=== PATIENT | female | born 1970 | race Caucasian/White ===

== ENCOUNTER 2020-06-30 15:34 | Emergency (ER) | payer MEDICAID ==
[2020-06-30] MEDS ORDERED: SODIUM CHLORIDE 0.9% (FLUSH) 10 ML SYG IV PRN (15:38)
--- NOTE | 2020-06-30 16:03 | ED.PDOC ---
History of Present Illness - General Chief Complaint: Chest Pain/[place]I Stated Complaint: chest pain Time Seen by Provider: 06/30/20 15:37 Source: patient, RN notes reviewed, Vital Signs reviewed Exam Limitations: other - pt with a trach and only able to mouth words. - History of Present Illness Initial Comments: Patient is a morbidly obese 49-year-old white female who presents from the long-term facility on a trach vent with complaints of chest pain. Patient has a history of coronary artery disease and has had stents and surgery for same. Patient states that her chest pain started approximately 2 hours ago. It is 10/10. It is sharp and stabbing in nature. The pain does not radiate. Patient denies any nausea, vomiting or diaphoresis. The pain is constant. There was no relief after 4 nitroglycerin from EMS. Timing/Duration: 1-3 hours Severity/Quality: severe, sharp, stabbing Location: central Chest Pain Radiation: no radiation Activities at Onset: none Prior Chest Pain/Cardiac Workup: cardiac cath, heart attack Improving Factors: nothing Worsening Factors: nothing Nitro Today/Relief: 0.4 mg x 4, provided by EMS Aspirin Treatment Today: 81 mg x 4, provided by EMS Associated Symptoms: shortness of breath Allergies/Adverse Reactions: Allergies Amoxicillin [From Augmentin] Allergy (Verified 06/30/20 15:47) Clavulanic Acid [From Augmentin] Allergy (Verified 06/30/20 15:47) Clindamycin Allergy (Verified 06/30/20 15:47) Desvenlafaxine [From Pristiq] Allergy (Verified 06/30/20 15:47) Ondansetron [From Zofran] Allergy (Verified 06/30/20 15:47) Penicillins Allergy (Verified 06/30/20 15:47) Tramadol Allergy (Verified 06/30/20 15:47) Home Medications: Ambulatory Orders ALPRAZolam [Xanax] 0.5 mg PEG Q8H 06/30/20 Acetaminophen [Acetaminophen Extra Stren] 1,000 mg PEG Q8H PRN 06/30/20 Acetaminophen [Tylenol] 325 mg PEG Q6H 06/30/20 Alirocumab [Praluent] 150 mg SC [id number] 06/30/20 Aspirin [Aspirin Adult Low Dose] 81 mg PEG DAILY 06/30/20 Atorvastatin Calcium [Lipitor] 80 mg PEG DAILY 06/30/20 Budesonide (Inhalation) [Budesonide] 0.5 mg IN Q12H 06/30/20 Buspirone HCl 15 mg PEG TID 06/30/20 Carbamazepine 100 mg PEG BID 06/30/20 Carvedilol 12.5 mg PEG BID 06/30/20 Cholestyramine Powder [Questran Powder] 4 gm PEG TID 06/30/20 Clonidine HCl 0.1 mg PEG BID 06/30/20 Dicyclomine HCl [Bentyl] 20 mg PEG Q6H PRN 06/30/20 Diphenoxylate/Atropine [Lomotil Tab] 2.5 mg PEG Q6H PRN 06/30/20 Ergocalciferol [Vitamin D] 50,000 unit PEG WE 06/30/20 Famotidine 20 mg PEG DAILY 06/30/20 Furosemide 40 mg PEG BID 06/30/20 Gabapentin 600 mg PEG TID 06/30/20 Hydroxyzine HCl 50 mg PEG Q8H PRN 06/30/20 Ibuprofen 600 mg PEG Q12H PRN 06/30/20 Insulin Glargine [Basaglar Kwikpen] 35 unit SC BID 06/30/20 Insulin Lispro [HumaLOG] 100 unit SC Q6H 06/30/20 Ipratropium-Albuterol [Ipratropium [place]/Albut] 1 janice IN Q6H PRN 06/30/20 Isosorbide Mononitrate (Ismo) [Ismo] 20 mg PEG Q8H 06/30/20 Levofloxacin [Levaquin] 750 mg PO DAILY #9 tab 06/30/20 Levothyroxine Sodium 88 mcg PEG DAILY 06/30/20 Levothyroxine Sodium [Synthroid] 200 mcg PEG DAILY 06/30/20 Magnesium [Magnesium Elemental] 30 mg PEG DAILY 06/30/20 Methocarbamol 750 mg PEG BID 06/30/20 Metoclopramide HCl [Metoclopramide Hydrochlor] 10 mg PEG Q6H PRN 06/30/20 Metolazone 5 mg PEG GAGAN-OTH-DAY 06/30/20 Nitroglycerin 0.4 mg Tab [Nitrostat] 1 ea SL PRN 06/30/20 Pantoprazole Tablet [Protonix] 40 mg PEG ACBK 06/30/20 Prasugrel [Effient] 10 mg PEG DAILY 06/30/20 Sertraline HCl [Zoloft] 100 mg PEG BID 06/30/20 Spironolactone 50 mg PEG DAILY 06/30/20 Trazodone HCl [Trazodone Hydrochloride] 200 mg PEG BEDTIME 06/30/20 Verapamil HCl 80 mg PEG Q8H 06/30/20 Review of Systems - Review of Systems Constitutional: States: no symptoms reported, see HPI. Denies: chills, fever, malaise, weakness EENTM: States: no symptoms reported. Denies: eye pain, blurred vision, throat pain Respiratory: States: see HPI, short of breath Cardiology: States: see HPI, chest pain. Denies: palpitations, syncope Gastrointestinal/Abdominal: States: no symptoms reported. Denies: abdominal pain, diarrhea, nausea, vomiting Genitourinary: States: no symptoms reported. Denies: dysuria, frequency Musculoskeletal: States: no symptoms reported. Denies: back pain, joint pain Skin: States: no symptoms reported. Denies: change in color, rash Neurological: States: no symptoms reported. Denies: headache, tingling, tremors, weakness Endocrine: States: no symptoms reported. Denies: increased hunger, increased thirst, increased urine Hematologic/Lymphatic: States: no symptoms reported. Denies: blood clots, easy bleeding, easy bruising All other Systems: No Change from Baseline Past Medical History (General) - Patient Medical History Hx of COPD: Yes Hx Cardiac Disorders: Yes Hx Congestive Heart Failure: Yes Hx Diabetes: Yes Surgical History: appendectomy, cholecystectomy, Hysterectomy - Vaccination History Hx Influenza Vaccination: - UNKNOWN Hx Pneumococcal Vaccination: - UNKNOWN - Social History Hx Tobacco Use: Yes - Activities of Daily Living Long-Term/Assisted Living (if applicable):: [facility] Family Medical History - Family History Mother Family History: Unknown Living Status: Still Living Physical Exam - Physical Exam General Appearance: Alert, Anxious, Obese, Unkempt, Well Developed, Well Hydrated, Well Nourished Eyes, Ears, Nose, Throat Exam: PERRL/EOMI, normal ENT inspection, pharynx normal Neck: non-tender, full range of motion, supple, other - trach in place Respiratory: chest non-tender, no accessory muscle use, rhonchi - diffusely throughout Cardiovascular/Chest: normal peripheral pulses, regular rate, rhythm, no edema, no gallop, no JVD, no murmur Peripheral Pulses: radial,right: 2+, radial,left: 2+ Gastrointestinal/Abdominal: normal bowel sounds, non tender, soft, distended - m orbidly obese Extremity: normal range of motion, non-tender, normal inspection 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 06/30/20 20:49 Initial difficulty in getting lab work. Nursing unable to attain IVs or blood work. Lab was unable to obtain blood work. I placed a left internal jugular central line and obtain blood work and this allowed further work-up evaluation of the patient. CTA shows she has pneumonia. No PE. Plan on discharge back to the [facility] on Levaquin. I discussed the plan of care with the patient she voices understanding and agreement. Bear Nelson M.D. #[id number] - Results/Orders Results/Orders: EKG performed 30 June 2020 at 1535 hrs.: Normal sinus rhythm 63 bpm, nonspecific ST changes inferiorly including inverted T waves in 2, 3 and aVF concerning for inferior ischemic changes, age indeterminate, abnormal EKG. No comparison EKG available. EXAM DESCRIPTION: Chest,1 View CLINICAL HISTORY: 49 years Female chest pain COMPARISON: None TECHNIQUE: AP view of the chest was obtained. FINDINGS: Cardiac silhouette is enlarged. Central vessels are increased and indistinct. Area endotracheal tube is present with the tip seen 3.1 cm above the estephanie. Sternal wires noted. Patchy airspace opacities in the lower lungs bilaterally left greater than right. No effusions bilaterally. No pneumothorax. IMPRESSION: Enlarged heart with moderate pulmonary congestion. Bilateral perihilar infrahilar infiltrate and atelectatic changes versus pulmonary congestion. Electronically signed by: Raissa Porter MD 06/30/2020 4:05 PM MANAGER US[employer]PERIENCE EXAM DESCRIPTION: Chest,1 View CLINICAL HISTORY: central line placement COMPARISON: 30 June 2020 TECHNIQUE: AP portable chest FINDINGS: The patient is poststernotomy. A tracheostomy tube is seen at the level of the thoracic inlet. Mild cardiomegaly is evident. Pulmonary vascular congestion is observed without overt pulmonary edema. A left IJ the central line is seen in pl jose with the distal tip in the region of the innominate vein. IMPRESSION: A left IJV central line is seen in place with the distal tip in the region of the innominate vein. Electronically signed by: Luis Marsh MD 06/30/2020 5:58 PM 06/30/20 15:38 Sodium Chloride 0.9% (Flush) [Saline Flush Syringe] 10 ml IV PRN PRN EKG Stat Pulse Ox Stat Laboratory Results - last 24 hr 06/30/20 06/30/20 17:40 17:40 WBC 6.0 RBC 3.88 L Hgb 10.4 L Hct 31.8 L MCV 82.0 MCH 26.8 L MCHC 32.7 L RDW 16.6 H Plt Count 151 MPV 8.0 Absolute Neuts (auto) 4.50 Absolute Lymphs (auto) 0.80 L Absolute Monos (auto) 0.60 Absolute Eos (auto) 0.10 Absolute Basos (auto) 0.00 Neutrophils % 75.8 Lymphocytes % 13.2 L Monocytes % 9.6 H Eosinophils % 0.9 L Basophils % 0.5 PT 11.0 H INR 1.11 PTT (SP) 24.5 D-Dimer, Quantitative 2110.0 H* Sodium 132 L Potassium 3.6 Chloride 92 L Carbon Dioxide 30 Anion Gap 13.6 BUN 53 H Creatinine 1.02 BUN/Creatinine Ratio 52.0 H Random Glucose 163 H Serum Osmolality 282.5 Calcium 9.6 Magnesium 1.7 L Total Bilirubin 0.3 Direct Bilirubin < 0.1 Indirect Bilirubin 0.2 AST 24 ALT 24 Alkaline Phosphatase 70 Creatine Kinase 65 CK-MB (CK-2) 2.2 CK-MB (CK-2) % Not Reportable Troponin I 0.04 B-Natriuretic Peptide 111.0 H Serum Total Protein 8.1 Albumin 3.2 EXAM: CTA chest with contrast CLINICAL INDICATION: Chest pain COMPARISON: None. TECHNIQUE: CTA of the chest was performed using contiguous axial 2.5mm postcontrast sections through the chest including IV contrast with 3-D reconstructions. This exam was performed according to our departmental dose- optimization program, which includes automated exposure control, adjustment of the mA and/or kV according to patient size and/or use of iterative reconstruction technique. FINDINGS: There is no evidence of pulmonary embolism. There are no findings to suggest aortic dissection. A tracheostomy is noted. Multiple shotty lymph nodes are seen in the upper mediastinum. There is an enlarged right hilar lymph node measuring 2.3 x 1.6 cm. Mild atelectasis is noted in the posterior aspect of both lower lobes. There is a subpleural nodule in the right middle lobe measuring 12.3 x 9.0 mm. Another nodule, in the right upper lobe measures 6.8 x 6.8 mm. Mild multifocal infiltrates are seen in the bilateral upper lobes. There is no pneumothorax or pleural effusion. IMPRESSION: 1. No evidence of pulmonary embolism. 2. Scattered pulmonary infiltrates suggesting pneumonia. 3. Pulmonary nodules in the right upper lobe and right middle lobe as described above. Six-month follow-up CT scan of the chest is recommended. Electronically signed by: Ismael Vasquez MD 06/30/2020 7:21 PM Vital Signs 06/30/20 06/30/20 06/30/20 15:39 16:25 16:26 Temperature 99.4 F Pulse Rate 64 Pulse Rate [ 66 64 Right Ulnar] Respiratory 18 18 Rate Blood Pressure 146/86 [Right Arm] O2 Sat by Pulse 99 Oximetry 06/30/20 06/30/20 17:34 19:00 Temperature Pulse Rate Pulse Rate [ 74 71 Right Ulnar] Respiratory 20 16 Rate Blood Pressure 159/72 133/65 [Right Arm] O2 Sat by Pulse 100 99 Oximetry Covid negative Procedures - Central Line Left Internal jugular vein Central Line Lumen: triple Central Line Procedure Prep: betadine prep, sterile drapes applied, sterile dressing applied Anesthesia: Lidocaine cc's of anesthesia: 5 Complications: none Central Line Post Position: sutured, good blood return, position confirmed w/ CXR Progress: Procedure note: Central line placement Indication: IV access Procedure: After obtaining informed consent from the patient verbally, the left neck was cleaned with chlorhexidine and draped in a sterile fashion with a full protective barrier. The area was anesthetized with 5 cc of 1% lidocaine. Using full barrier protection method and using full barrier protection method for the ultrasound, the right internal jugular vein was visualized with ultrasound and via a Seldinger a left internal jugular triple-lumen catheter was placed. There was no complications. The patient tolerated the procedure well. Departure - Departure Clinical Impression: Pneumonia Qualifiers: Pneumonia type: due to unspecified organism Laterality: bilateral Lung location: unspecified part of lung Qualified Code(s): J18.9 - Pneumonia, unspecified organism Chest pain Qualifiers: Chest pain type: unspecified Qualified Code(s): R07.9 - Chest pain, unspecified Time of Disposition: 20:55 Disposition: Discharge to SNF Condition: Fair Departure Forms: ED Discharge - Pt. Copy, Patient Portal Self Enrollment Instructions: DI for Chest Pain, Pneumonia, Adult (DC), Chest Pain (DC) Diet: resume usual diet Activity: increase activity as tolerated Referrals: DELMY BUTLER [Primary Care Provider] - 1-5 Days Prescriptions: Levofloxacin [Levaquin] 750 mg PO DAILY #9 tab Home Medications: Ambulatory Orders ALPRAZolam [Xanax] 0.5 mg PEG Q8H 06/30/20 Acetaminophen [Acetaminophen Extra Stren] 1,000 mg PEG Q8H PRN 06/30/20 Acetaminophen [Tylenol] 325 mg PEG Q6H 06/30/20 Alirocumab [Praluent] 150 mg SC .[id number] 06/30/20 Aspirin [Aspirin Adult Low Dose] 81 mg PEG DAILY 06/30/20 Atorvastatin Calcium [Lipitor] 80 mg PEG DAILY 06/30/20 Budesonide (Inhalation) [Budesonide] 0.5 mg IN Q12H 06/30/20 Buspirone HCl 15 mg PEG TID 06/30/20 Carbamazepine 100 mg PEG BID 06/30/20 Carvedilol 12.5 mg PEG BID 06/30/20 Cholestyramine Powder [Questran Powder] 4 gm PEG TID 06/30/20 Clonidine HCl 0.1 mg PEG BID 06/30/20 Dicyclomine HCl [Bentyl] 20 mg PEG Q6H PRN 06/30/20 Diphenoxylate/Atropine [Lomotil Tab] 2.5 mg PEG Q6H PRN 06/30/20 Ergocalciferol [Vitamin D] 50,000 unit PEG WE 06/30/20 Famotidine 20 mg PEG DAILY 06/30/20 Furosemide 40 mg PEG BID 06/30/20 Gabapentin 600 mg PEG TID 06/30/20 Hydroxyzine HCl 50 mg PEG Q8H PRN 06/30/20 Ibuprofen 600 mg PEG Q12H PRN 06/30/20 Insulin Glargine [Basaglar Kwikpen] 35 unit SC BID 06/30/20 Insulin Lispro [HumaLOG] 100 unit SC Q6H 06/30/20 Ipratropium-Albuterol [Ipratropium [place]/Albut] 1 janice IN Q6H PRN 06/30/20 Isosorbide Mononitrate (Ismo) [Ismo] 20 mg PEG Q8H 06/30/20 Levofloxacin [Levaquin] 750 mg PO DAILY #9 tab 06/30/20 Levothyroxine Sodium 88 mcg PEG DAILY 06/30/20 Levothyroxine Sodium [Synthroid] 200 mcg PEG DAILY 06/30/20 Magnesium [Magnesium Elemental] 30 mg PEG DAILY 06/30/20 Methocarbamol 750 mg PEG BID 06/30/20 Metoclopramide HCl [Metoclopramide Hydrochlor] 10 mg PEG Q6H PRN 06/30/20 Metolazone 5 mg PEG GAGAN-OTH-DAY 06/30/20 Nitroglycerin 0.4 mg Tab [Nitrostat] 1 ea SL PRN 06/30/20 Pantoprazole Tablet [Protonix] 40 mg PEG ACBK 06/30/20 Prasugrel [Effient] 10 mg PEG DAILY 06/30/20 Sertraline HCl [Zoloft] 100 mg PEG BID 06/30/20 Spironolactone 50 mg PEG DAILY 06/30/20 Trazodone HCl [Trazodone Hydrochloride] 200 mg PEG BEDTIME 06/30/20 Verapamil HCl 80 mg PEG Q8H 06/30/20
--- NOTE | 2020-06-30 16:07 | RAD ---
EXAM DESCRIPTION: Chest,1 View CLINICAL HISTORY: 49 years Female chest pain COMPARISON: None TECHNIQUE: AP view of the chest was obtained. FINDINGS: Cardiac silhouette is enlarged. Central vessels are increased and indistinct. Area endotracheal tube is present with the tip seen 3.1 cm above the estephanie. Sternal wires noted. Patchy airspace opacities in the lower lungs bilaterally left greater than right. No effusions bilaterally. No pneumothorax. IMPRESSION: Enlarged heart with moderate pulmonary congestion. Bilateral perihilar infrahilar infiltrate and atelectatic changes versus pulmonary congestion. Electronically signed by: Raissa Porter MD 06/30/2020 4:05 PM [employer] WORK[employer]
--- NOTE | 2020-06-30 17:59 | RAD ---
EXAM DESCRIPTION: Chest,1 View CLINICAL HISTORY: central line placement COMPARISON: 30 June 2020 TECHNIQUE: AP portable chest FINDINGS: The patient is poststernotomy. A tracheostomy tube is seen at the level of the thoracic inlet. Mild cardiomegaly is evident. Pulmonary vascular congestion is observed without overt pulmonary edema. A left IJ the central line is seen in place with the distal tip in the region of the innominate vein. IMPRESSION: A left IJV central line is seen in place with the distal tip in the region of the innominate vein. Electronically signed by: Luis Marsh MD 06/30/2020 5:58 PM [facility]
[2020-06-30] MEDS ORDERED: fentaNYL CITRATE INJ 50 MCG/ML 2 ML AMP IV ONE ×2 (18:17→18:48)
[2020-06-30] MEDS ORDERED: PROMETHAZINE HCL INJ 25 MG in SODIUM CHLORIDE 0.9% 50ML 50 ML IVPB ONE (18:48)
--- NOTE | 2020-06-30 19:23 | CT ---
EXAM: CTA chest with contrast CLINICAL INDICATION: Chest pain COMPARISON: None. TECHNIQUE: CTA of the chest was performed using contiguous axial 2.5mm postcontrast sections through the chest including IV contrast with 3-D reconstructions. This exam was performed according to our departmental dose-optimization program, which includes automated exposure control, adjustment of the mA and/or kV according to patient size and/or use of iterative reconstruction technique. FINDINGS: There is no evidence of pulmonary embolism. There are no findings to suggest aortic dissection. A tracheostomy is noted. Multiple shotty lymph nodes are seen in the upper mediastinum. There is an enlarged right hilar lymph node measuring 2.3 x 1.6 cm. Mild atelectasis is noted in the posterior aspect of both lower lobes. There is a subpleural nodule in the right middle lobe measuring 12.3 x 9.0 mm. Another nodule, in the right upper lobe measures 6.8 x 6.8 mm. Mild multifocal infiltrates are seen in the bilateral upper lobes. There is no pneumothorax or pleural effusion. IMPRESSION: 1. No evidence of pulmonary embolism. 2. Scattered pulmonary infiltrates suggesting pneumonia. 3. Pulmonary nodules in the right upper lobe and right middle lobe as described above. Six-month follow-up CT scan of the chest is recommended. Electronically signed by: Ismael Vasquez MD 06/30/2020 7:21 PM MEDICAL COST CONSULTANT
[2020-06-30] MEDS ORDERED: levoFLOXacin 750MG IV 750 MG in PREMIX BAG 1 BAG IVPB ONE (19:41)
[2020-06-30] MEDS ORDERED: SODIUM CHLORIDE 0.9% 1000ML 1,000 ML IVS ONE (19:42)
[2020-06-30 21:56] VITALS: TEMP 97.8
[2020-06-30 22:07] VITALS: BP 159/74; O2SAT 94
== END 2020-06-30 22:26 ==
LOC: ER 15:34
DX: J18.9 Pneumonia, unspecified organism (principal); R07.9 Chest pain, unspecified; E66.01 Morbid (severe) obesity due to excess calories; J44.9 Chronic obstructive pulmonary disease, unspecified; I50.9 Heart failure, unspecified; I25.10 Atherosclerotic heart disease of native coronary artery without angina pectoris; E11.9 Type 2 diabetes mellitus without complications; Z20.828 Contact with and (suspected) exposure to other viral communicable diseases; Z88.8 Allergy status to other drugs, medicaments and biological substances; Z88.0 Allergy status to penicillin; Z88.5 Allergy status to narcotic agent; Z88.1 Allergy status to other antibiotic agents; Z79.4 Long term (current) use of insulin; Z79.82 Long term (current) use of aspirin; Z79.899 Other long term (current) drug therapy; Z99.11 Dependence on respirator [ventilator] status; Z93.0 Tracheostomy status; Z95.5 Presence of coronary angioplasty implant and graft; Z68.41 Body mass index [BMI] 40.0-44.9, adult; Z87.891 Personal history of nicotine dependence
CPT/HCPCS: 36415; 71045; 71275; 80048; 80076; 82550; 82553; 83880; 84484; 85025; 85379; 85610; 85730; 87040; 87635; 93005; A4216; J1956; J2550; J3010; J7030

== ENCOUNTER 2020-07-04 23:06 | Emergency (ER) | payer MEDICAID ==
[2020-07-04] MEDS ORDERED: SODIUM CHL 0.9% 50ML VIAL 12 ML, ALBUTEROL SULFATE NEBS 7.5 MG NEB ONE ×2 (23:16)
[2020-07-04] MEDS ORDERED: IPRATROPIUM/ALBUTEROL 3 ML VIAL NEB ONE (23:16)
[2020-07-04] MEDS ORDERED: ALBUTEROL SULFATE 2.5 MG/3 ML VIAL NEB ONE (23:21)
[2020-07-04 23:36] VITALS: TEMP 99.8
--- NOTE | 2020-07-05 00:01 | RAD ---
EXAM: XR Chest, 1 View CLINICAL HISTORY: The patient is 49 years old and is Female; sob TECHNIQUE: Frontal view of the chest. COMPARISON: Chest x-ray 06/30/2020. FINDINGS: Limitations: Evaluation somewhat limited by technique. Lungs: Diffuse bilateral airspace disease. Low lung volumes bilaterally. Pleural space: Unremarkable. No pneumothorax. Heart: Clips overlying the cardiac silhouette. Mediastinum: Unremarkable. Bones/joints: Median sternotomy wires. Tubes, lines and devices: Tracheostomy tube in place. Other findings: Patient is rotated. IMPRESSION: 1. Diffuse bilateral airspace disease. 2. Low lung volumes bilaterally. Electronically signed by: Hayden Dave MD 07/04/2020 11:59 PM [facility]
--- NOTE | 2020-07-05 00:45 | ED.PDOC ---
History of Present Illness - General Chief Complaint: Respiratory Problem Stated Complaint: difficulty breathing Time Seen by Provider: 07/04/20 23:16 Source: patient, RN notes reviewed, Vital Signs reviewed, old records - from her visit on 06/30/2020 Exam Limitations: physical impairment - due to pt with trach. - History of Present Illness Initial Comments: Patient is a 49-year-old morbidly obese white female who is known to me from her visit 4 days ago. Patient presents complaining of shortness of breath. Per the long term, patient refuses to wear BiPAP at night and she was desaturating. They were unable to get her saturations above 90%. On arrival here, on 6 L via trach collar she was 95%. Patient denies a cough or fever. She states that the cough is constant additionally her shortness of breath is constant. Cough is nonproductive. Timing/Duration: 1 week Severity: moderate Improving Factors: nothing Worsening Factors: movement Associated Symptoms: cough, shortness of breath Allergies/Adverse Reactions: Allergies Amoxicillin [From Augmentin] Allergy (Verified 06/30/20 15:47) Clavulanic Acid [From Augmentin] Allergy (Verified 06/30/20 15:47) Clindamycin Allergy (Verified 06/30/20 15:47) Desvenlafaxine [From Pristiq] Allergy (Verified 06/30/20 15:47) Ondansetron [From Zofran] Allergy (Verified 06/30/20 15:47) Penicillins Allergy (Verified 06/30/20 15:47) Tramadol Allergy (Verified 06/30/20 15:47) Home Medications: Ambulatory Orders ALPRAZolam [Xanax] 0.5 mg PEG Q8H 06/30/20 Acetaminophen [Acetaminophen Extra Stren] 1,000 mg PEG Q8H PRN 06/30/20 Acetaminophen [Tylenol] 325 mg PEG Q6H 06/30/20 Alirocumab [Praluent] 150 mg SC .[id number] 06/30/20 Aspirin [Aspirin Adult Low Dose] 81 mg PEG DAILY 06/30/20 Atorvastatin Calcium [Lipitor] 80 mg PEG DAILY 06/30/20 Budesonide (Inhalation) [Budesonide] 0.5 mg IN Q12H 06/30/20 Buspirone HCl 15 mg PEG TID 06/30/20 Carbamazepine 100 mg PEG BID 06/30/20 Carvedilol 12.5 mg PEG BID 06/30/20 Cholestyramine Powder [Questran Powder] 4 gm PEG TID 06/30/20 Clonidine HCl 0.1 mg PEG BID 06/30/20 Dicyclomine HCl [Bentyl] 20 mg PEG Q6H PRN 06/30/20 Diphenoxylate/Atropine [Lomotil Tab] 2.5 mg PEG Q6H PRN 06/30/20 Ergocalciferol [Vitamin D] 50,000 unit PEG WE 06/30/20 Famotidine 20 mg PEG DAILY 06/30/20 Furosemide 40 mg PEG BID 06/30/20 Gabapentin 600 mg PEG TID 06/30/20 Hydroxyzine HCl 50 mg PEG Q8H PRN 06/30/20 Ibuprofen 600 mg PEG Q12H PRN 06/30/20 Insulin Glargine [Basaglar Kwikpen] 35 unit SC BID 06/30/20 Insulin Lispro [HumaLOG] 100 unit SC Q6H 06/30/20 Ipratropium-Albuterol [Ipratropium Nunnelly/Albut] 1 janice IN Q6H PRN 06/30/20 Isosorbide Mononitrate (Ismo) [Ismo] 20 mg PEG Q8H 06/30/20 Levofloxacin [Levaquin] 750 mg PO DAILY #9 tab 06/30/20 Levothyroxine Sodium 88 mcg PEG DAILY 06/30/20 Levothyroxine Sodium [Synthroid] 200 mcg PEG DAILY 06/30/20 Magnesium [Magnesium Elemental] 30 mg PEG DAILY 06/30/20 Methocarbamol 750 mg PEG BID 06/30/20 Metoclopramide HCl [Metoclopramide Hydrochlor] 10 mg PEG Q6H PRN 06/30/20 Metolazone 5 mg PEG GAGAN-OTH-DAY 06/30/20 Nitroglycerin 0.4 mg Tab [Nitrostat] 1 ea SL PRN 06/30/20 Pantoprazole Tablet [Protonix] 40 mg PEG ACBK 06/30/20 Prasugrel [Effient] 10 mg PEG DAILY 06/30/20 Sertraline HCl [Zoloft] 100 mg PEG BID 06/30/20 Spironolactone 50 mg PEG DAILY 06/30/20 Trazodone HCl [Trazodone Hydrochloride] 200 mg PEG BEDTIME 06/30/20 Verapamil HCl 80 mg PEG Q8H 06/30/20 Review of Systems - Review of Systems Constitutional: States: no symptoms reported, see HPI. Denies: chills, fever, malaise, weakness EENTM: States: no symptoms reported. Denies: eye pain, blurred vision, double vision Respiratory: States: see HPI, cough, short of breath, wheezing Cardiology: States: no symptoms reported. Denies: chest pain, palpitations, syncope Gastrointestinal/Abdominal: States: no symptoms reported. Denies: abdominal pain, diarrhea, nausea, vomiting Genitourinary: States: no symptoms reported Skin: States: no symptoms reported. Denies: change in color, rash Neurological: States: no symptoms reported. Denies: headache, tingling, tremors Endocrine: States: no symptoms reported. Denies: increased hunger, increased thirst, increased urine Hematologic/Lymphatic: States: no symptoms reported. Denies: blood clots, easy bleeding All other Systems: No Change from Baseline Past Medical History (General) - Patient Medical History Hx Seizures: No Hx Stroke: No Hx Dementia: No Hx of COPD: Yes Hx Cardiac Disorders: Yes - AR Hx Congestive Heart Failure: Yes Hx Pacemaker: No Hx Hypertension: Yes Hx Thyroid Disease: Yes Hx Diabetes: Yes Hx Gastroesophageal Reflux: Yes Hx Renal Disease: No Hx Cancer: No Hx of HIV: No Hx Hepatitis C: No Hx MRSA: No Surgical History: other - Vaccination History Hx Tetanus, Diphtheria Vaccination: - unkn Hx Influenza Vaccination: Yes Hx Pneumococcal Vaccination: - UNKNOWN - Social History Hx Tobacco Use: Yes Feels Threatened In Home Enviroment: No Feels Threatened In a Relationship: No Hx Physical Abuse: No Hx Emotional Abuse: No Hx Suspected Abuse: No - Activities of Daily Living [facility] (if applicable[facility]:: [facility] Agency (if applicable):: None - Female History Patient is a Female of Child Bearing Age (10 -59 yrs old): Yes Family Medical History - Family History Mother Family History: Unknown Living Status: Still Living Physical Exam - Physical Exam General Appearance: Alert, Anxious, Obese, Well Hydrated, Well Nourished Eye Exam: bilateral normal Ears, Nose, Throat: hearing grossly normal, normal ENT inspection, normal pharyn x - except for tacky mucous memranes Neck: non-tender, full range of motion, supple, other - Pt with trach in place. Bandage from the central line that was placed 4days ago was removed. The skin is c/d/i. 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 07/05/20 00:55 Patient is markedly improved after DuoNeb and albuterol 70 mg nebulized. Patient is satting 95% on 4 L via trach collar. Plan on discharge back to the long term for further care and continuance of her antibiotics for her pneumonia. I discussed this plan of care with the patient she voices understanding and agreement. Bear Nelson M.D. #[id number] - Results/Orders Results/Orders: EXAM: XR Chest, 1 View CLINICAL HISTORY: The patient is 49 years old and is Female; sob TECHNIQUE: Frontal view of the chest. COMPARISON: Chest x-ray 06/30/2020. FINDINGS: Limitations: Evaluation somewhat limited by technique. Lungs: Diffuse bilateral airspace disease. Low lung volumes bilaterally. Pleural space: Unremarkable. No pneumothorax. Heart: Clips overlying the cardiac silhouette. Mediastinum: Unremarkable. Bones/joints: Median sternotomy wires. Tubes, lines and devices: Tracheostomy tube in place. Other findings: Patient is rotated. IMPRESSION: 1. Diffuse bilateral airspace disease. 2. Low lung volumes bilaterally. Electronically signed by: Hayden Dave MD 07/04/2020 11:59 X-ray appears improved from previous x-ray 4 days ago. Vital Signs 07/04/20 07/04/20 07/05/20 23:08 23:15 00:00 Temperature 99.8 F H Pulse Rate [ 97 H 74 pulse ox] Respiratory 20 20 20 Rate Blood Pressure 144/68 [Left Arm] O2 Sat by Pulse 97 94 L Oximetry Departure - Departure Clinical Impression: Hypoxia Pneumonia Qualifiers: Pneumonia type: due to unspecified organism Laterality: bilateral Lung location : unspecified part of lung Qualified Code(s): J18.9 - Pneumonia, unspecified organism Time of Disposition: Disposition: Discharge to SNF Condition: Fair Departure Forms: ED Discharge - Pt. Copy, Patient Portal Self Enrollment Instructions: Pneumonia, Adult (DC) Diet: resume usual diet Activity: as per physical therapy Referrals: DELMY BUTLER [Primary Care Provider] - 1-2 Days Home Medications: Ambulatory Orders ALPRAZolam [Xanax] 0.5 mg PEG Q8H 06/30/20 Acetaminophen [Acetaminophen Extra Stren] 1,000 mg PEG Q8H PRN 06/30/20 Acetaminophen [Tylenol] 325 mg PEG Q6H 06/30/20 Alirocumab [Praluent] 150 mg SC .[id number] 06/30/20 Aspirin [Aspirin Adult Low Dose] 81 mg PEG DAILY 06/30/20 Atorvastatin Calcium [Lipitor] 80 mg PEG DAILY 06/30/20 Budesonide (Inhalation) [Budesonide] 0.5 mg IN Q12H 06/30/20 Buspirone HCl 15 mg PEG TID 06/30/20 Carbamazepine 100 mg PEG BID 06/30/20 Carvedilol 12.5 mg PEG BID 06/30/20 Cholestyramine Powder [Questran Powder] 4 gm PEG TID 06/30/20 Clonidine HCl 0.1 mg PEG BID 06/30/20 Dicyclomine HCl [Bentyl] 20 mg PEG Q6H PRN 06/30/20 Diphenoxylate/Atropine [Lomotil Tab] 2.5 mg PEG Q6H PRN 06/30/20 Ergocalciferol [Vitamin D] 50,000 unit PEG WE 06/30/20 Famotidine 20 mg PEG DAILY 06/30/20 Furosemide 40 mg PEG BID 06/30/20 Gabapentin 600 mg PEG TID 06/30/20 Hydroxyzine HCl 50 mg PEG Q8H PRN 06/30/20 Ibuprofen 600 mg PEG Q12H PRN 06/30/20 Insulin Glargine [Basaglar Kwikpen] 35 unit SC BID 06/30/20 Insulin Lispro [HumaLOG] 100 unit SC Q6H 06/30/20 Ipratropium-Albuterol [Ipratropium Nunnelly/Albut] 1 janice IN Q6H PRN 06/30/20 Isosorbide Mononitrate (Ismo) [Ismo] 20 mg PEG Q8H 06/30/20 Levofloxacin [Levaquin] 750 mg PO DAILY #9 tab 06/30/20 Levothyroxine Sodium 88 mcg PEG DAILY 06/30/20 Levothyroxine Sodium [Synthroid] 200 mcg PEG DAILY 06/30/20 Magnesium [Magnesium Elemental] 30 mg PEG DAILY 06/30/20 Methocarbamol 750 mg PEG BID 06/30/20 Metoclopramide HCl [Metoclopramide Hydrochlor] 10 mg PEG Q6H PRN 06/30/20 Metolazone 5 mg PEG GAGAN-OTH-DAY 06/30/20 Nitroglycerin 0.4 mg Tab [Nitrostat] 1 ea SL PRN 06/30/20 Pantoprazole Tablet [Protonix] 40 mg PEG ACBK 06/30/20 Prasugrel [Effient] 10 mg PEG DAILY 06/30/20 Sertraline HCl [Zoloft] 100 mg PEG BID 06/30/20 Spironolactone 50 mg PEG DAILY 06/30/20 Trazodone HCl [Trazodone Hydrochloride] 200 mg PEG BEDTIME 06/30/20 Verapamil HCl 80 mg PEG Q8H 06/30/20
[2020-07-05 01:01] VITALS: BP 133/68
[2020-07-05 01:13] VITALS: O2SAT 97
== END 2020-07-05 01:30 ==
LOC: ER 23:06
DX: R09.02 Hypoxemia (principal); J18.9 Pneumonia, unspecified organism; I25.2 Old myocardial infarction; J44.9 Chronic obstructive pulmonary disease, unspecified; I50.9 Heart failure, unspecified; I11.0 Hypertensive heart disease with heart failure; E07.9 Disorder of thyroid, unspecified; E11.9 Type 2 diabetes mellitus without complications; K21.9 Gastro-esophageal reflux disease without esophagitis; Z87.891 Personal history of nicotine dependence; Z93.0 Tracheostomy status; Z99.11 Dependence on respirator [ventilator] status; Z79.899 Other long term (current) drug therapy; Z79.4 Long term (current) use of insulin; Z79.82 Long term (current) use of aspirin; Z88.1 Allergy status to other antibiotic agents; Z88.8 Allergy status to other drugs, medicaments and biological substances; Z88.0 Allergy status to penicillin; Z88.5 Allergy status to narcotic agent; E66.01 Morbid (severe) obesity due to excess calories; Z68.41 Body mass index [BMI] 40.0-44.9, adult
CPT/HCPCS: 71045; 94644; J7611; J7620

== ENCOUNTER 2020-07-10 13:42 | Emergency (ER) | payer MEDICAID, OTHER ==
[2020-07-10] MEDS ORDERED: SODIUM CHLORIDE 0.9% (FLUSH) 10 ML SYG IV PRN (13:51)
[2020-07-10] MEDS ORDERED: IPRATROPIUM/ALBUTEROL 3 ML VIAL NEB ONE (13:52)
--- NOTE | 2020-07-10 13:55 | ED.PDOC ---
History of Present Illness - General Time Seen by Provider: 07/10/20 13:51 Source: patient, EMS, retirement records - History of Present Illness Initial Comments: 49-year-old female with past medical history of trach/vent dependence, G-tube dependent, hypertension, CHF, COPD, anxiety, GERD who was sent from [facility] for chief complaint of chest pain and shortness of breath. Patient is awake and alert but verbal communication is limited given trach dependency. She reports that symptoms began this morning and have rapidly worsened. She complains of 10/10 severity pain in the left center of her chest without radiation, constant, unknown exacerbating or alleviating factors. She reports the pain feels similar to prior MIs. Additionally reports marked dyspnea which is also been worsening since this morning. She was given some breathing treatments at the [facility] but reports very little relief. Denies any cough, fevers, abdominal pain, nausea/vomiting/diarrhea, leg swelling. Patient was also seen here on 06/30 and 07/04 for similar symptoms and was diagnosed with bilateral pneumonia. She improved in the ED with breathing treatments and was discharged back to the [facility] at that time on oral antibiotics. Allergies/Adverse Reactions: Allergies Amoxicillin [From Augmentin] Allergy (Verified 07/10/20 14:25) Clavulanic Acid [From Augmentin] Allergy (Verified 07/10/20 14:25) Clindamycin Allergy (Verified 07/10/20 14:25) Desvenlafaxine [From Pristiq] Allergy (Verified 07/10/20 14:25) Ondansetron [From Zofran] Allergy (Verified 07/10/20 14:25) Penicillins Allergy (Verified 07/10/20 14:25) Tramadol Allergy (Verified 07/10/20 14:25) Home Medications: Ambulatory Orders ALPRAZolam [Xanax] 0.5 mg PEG Q8H 06/30/20 Acetaminophen [Acetaminophen Extra Stren] 1,000 mg PEG Q8H PRN 06/30/20 Acetaminophen [Tylenol] 325 mg PEG Q6H 06/30/20 Alirocumab [Praluent] 150 mg SC .[id number] 06/30/20 Aspirin [Aspirin Adult Low Dose] 81 mg PEG DAILY 06/30/20 Atorvastatin Calcium [Lipitor] 80 mg PEG DAILY 06/30/20 Budesonide (Inhalation) [Budesonide] 0.5 mg IN Q12H 06/30/20 Buspirone HCl 15 mg PEG TID 06/30/20 Carbamazepine 100 mg PEG BID 06/30/20 Carvedilol 12.5 mg PEG BID 06/30/20 Cholestyramine Powder [Questran Powder] 4 gm PEG TID 06/30/20 Clonidine HCl 0.1 mg PEG BID 06/30/20 Dicyclomine HCl [Bentyl] 20 mg PEG Q6H PRN 06/30/20 Diphenoxylate/Atropine [Lomotil Tab] 2.5 mg PEG Q6H PRN 06/30/20 Ergocalciferol [Vitamin D] 50,000 unit PEG WE 06/30/20 Famotidine 20 mg PEG DAILY 06/30/20 Furosemide 40 mg PEG BID 06/30/20 Gabapentin 600 mg PEG TID 06/30/20 Hydroxyzine HCl 50 mg PEG Q8H PRN 06/30/20 Ibuprofen 600 mg PEG Q12H PRN 06/30/20 Insulin Glargine [Basaglar Kwikpen] 35 unit SC BID 06/30/20 Insulin Lispro [HumaLOG] 100 unit SC Q6H 06/30/20 Ipratropium-Albuterol [Ipratropium Sparks/Albut] 1 janice IN Q6H PRN 06/30/20 Isosorbide Mononitrate (Ismo) [Ismo] 20 mg PEG Q8H 06/30/20 Levofloxacin [Levaquin] 750 mg PO DAILY #9 tab 06/30/20 Levothyroxine Sodium 88 mcg PEG DAILY 06/30/20 Levothyroxine Sodium [Synthroid] 200 mcg PEG DAILY 06/30/20 Magnesium [Magnesium Elemental] 30 mg PEG DAILY 06/30/20 Methocarbamol 750 mg PEG BID 06/30/20 Metoclopramide HCl [Metoclopramide Hydrochlor] 10 mg PEG Q6H PRN 06/30/20 Metolazone 5 mg PEG GAGAN-OTH-DAY 06/30/20 Nitroglycerin 0.4 mg Tab [Nitrostat] 1 ea SL PRN 06/30/20 Pantoprazole Tablet [Protonix] 40 mg PEG ACBK 06/30/20 Prasugrel [Effient] 10 mg PEG DAILY 06/30/20 Sertraline HCl [Zoloft] 100 mg PEG BID 06/30/20 Spironolactone 50 mg PEG DAILY 06/30/20 Trazodone HCl [Trazodone Hydrochloride] 200 mg PEG BEDTIME 06/30/20 Verapamil HCl 80 mg PEG Q8H 06/30/20 Review of Systems - Review of Systems Review of Systems: 07/10/20 13:55 as per HPI All other Systems: Reviewed and Negative Past Medical History (General) - Patient Medical History Hx Seizures: No Hx Stroke: No Hx Dementia: No Hx of COPD: Yes Hx Cardiac Disorders: Yes - [place] Hx Congestive Heart Failure: Yes Hx Pacemaker: No Hx Hypertension: Yes Hx Thyroid Disease: Yes Hx Diabetes: Yes Hx Gastroesophageal Reflux: Yes Hx Renal Disease: No Hx Cancer: No Hx of HIV: No Hx Hepatitis C: No Hx MRSA: No - Vaccination History Hx Tetanus, Diphtheria Vaccination: - unkn Hx Influenza Vaccination: Yes Hx Pneumococcal Vaccination: - UNKNOWN - Social History Hx Tobacco Use: Yes Hx Physical Abuse: No Hx Emotional Abuse: No Hx Suspected Abuse: No Family Medical History - Family History Mother Family History: Unknown Living Status: Still Living Physical Exam - Physical Exam General Appearance: Alert, Anxious, Obese Eye Exam: bilateral normal Ears, Nose, Throat: hearing grossly normal, normal ENT inspection, normal pharynx, other - Tracheostomy tube in place, scant blood noted Neck: non-tender, full range of motion, supple, normal inspection Respiratory: chest non-tender, lungs clear, normal breath sounds, accessory muscle use, other - tachypnea, accessory muscle use Cardiovascular/Chest: normal peripheral pulses, regular rate, rhythm, no edema, no gallop, no JVD, no murmur Peripheral Pulses: radial,right: 2+, radial,left: 2+ Gastrointestinal/Abdominal: non tender, soft, no organomegaly Back Exam: normal inspection, no CVA tenderness, no vertebral tenderness Extremity: normal range of motion, non-tender, normal inspection, no pedal edema, no calf tenderness Neurologic: wealth management director II-XII nml as tested, no motor/sensory deficits, alert, normal mood/affect, oriented x 3 Skin Exam: normal color, warm/dry Progress - Progress Progress: 07/10/20 13:56 Chest pain, dyspnea -consider ACS, COPD exacerbation, mucous plugging, PTX/SAMIR, PNA, COVID-19, flu, pleural effusion, panic attack, other -pt noted to have 99% with 50% FiO2/PEEP 10/TV 500 vent settings on arrival. Tachypnea. Noted good air movement throughout. Vitals otherwise stable. -stat cardiac work-up, CXR, EKG, rapid COVID/flu, ABG -trial of Duonebs and NTG PRN 07/10/20 15:26 -Patient remains with marked dyspnea, tachypnea but maintaining 100% SPO2 on current vent settings. Her chest x-ray reveals bilateral diffuse hazy opacities concerning for bilateral pneumonia versus pulmonary edema. This is slightly worsened from 06/30/2020 chest x-ray. Labs reveal WBC 5,400 with 81% segs, no bands, lactic acid 2.7, hemoglobin 9.0 (down from 10.7 on 06/30), hematocrit 27, PLTs 419,000. BUN 62, Cr 1.0, Na 131, K 5.4. ABG with pH 7.61, PCO2 28, PO2 164, base excess 7.2, bicarb 28. BNP 416, trop 0.02. Rapid COVID/flu/strep testing neg. Blood cx's x2 drawn. -Given findings, concern for acute respiratory distress. Etiology still uncertain. Consider bilateral pneumonia, flash pulmonary edema, CHF, COVID-19. Given elevated BUN and worsening anemia, consider also GI bleed or other blood loss anemia or acute renal failure. Consider also sepsis, ACS, other. Obtaining CTA chest. Will give Ativan 1 mg IV and morphine 4 mg IV to help with patient's rapid breathing. I advised the patient we may need to sedate and paralyze her in order to let ventilator breathe for her but she adamantly refuses. She does report that she is full CODE STATUS. 07/10/20 15:50 -Patient is a very difficult IV stick. The nurses were able to get a 22-gauge IV in the left upper extremity but this is insufficient for CTA chest imaging. I spoke with the patient at length for need of larger IV site for possible EJ vein or central line placement for adequate imaging but she adamantly refuses. Thus we will change the order to CT chest with IV contrast for further evaluation. Patient was noted to have CTA chest on 06/30 which showed no evidence of PE at that time but did reveal bilateral infiltrates consistent with pneumonia. 07/10/20 18:05 -Repeat EKG is unchanged and repeat troponin remains negative. -Patient remained stable. Respiratory distress has been resolved for nearly 3 hours. Current vent settings PEEP 12, tidal volume 500, FiO2 60%. She is maintaining 100% SPO2 on the settings. She is breathing comfortably. Chest pain is also resolved. She is reporting headache following the morphine and requested more morphine but headache still present. -CT of the chest reveals slightly worsened bilateral diffuse groundglass opacities consistent with multifocal pneumonia and possible COVID-19 pneumonia. However patient is negative for COVID-19 on both rapid testing and respiratory panel. Thus she may have a bacterial pneumonia given her lactic acidosis but she is without leukocytosis or left shift which is unusual. Given her worsening status, I am inclined to escalate her antibiotic regimen. Vancomycin 1500 mg IV and cefepime 2 g IV were given in the ED. -As the patient is trach/vent dependent, we are unable to admit her at this hospital as we are without ICU facilities. I have called [facility] as well as [facility] in [place] for possible transfer to an ICU bed but none are available at these facilities. As patient has remained very stable, we will repeat her lactate level to ensure improvement. If lactate is improving and pt remains stable, we may try to discharge back to the [facility] with this new change of antibiotic regimen as well as to advise scheduled bronchodilators and judicious IV fluids at the retirement. 07/10/20 23:04 -Pt has remained stable, no repeat respiratory distress now for several hours on vent settings. Eager to go back to [facility]. Repeat lactate has improved to 1.4 and repeat BMP shows K improved to 5.1. Will dc back to [facility] on new IV Abx of Vancomycin and Cefepime for 7 days. Further/continued management by [facility] doctor. Return warnings discussed. Deon Ross MD Billing #[id number] 07/10/20 13:51 Sodium Chloride 0.9% (Flush) [Saline Flush Syringe] 10 ml IV PRN PRN EKG Assessment ONCE Pulse Oximetry Assessment DAILY 07/10/20 14:00 EKG STAT 07/10/20 14:53 Mechanical Ventilation DAILY 07/10/20 15:23 BLOOD CULTURE Stat 07/10/20 15:50 Hold Metformin x 48Hrs [id number] 07/10/20 16:45 EKG Assessment ONCE EKG STAT 07/11/20 09:00 Pulse Ox Daily Laboratory Results - last 24 hr 07/10/20 07/10/20 07/10/20 13:52 14:20 14:20 WBC 5.4 RBC 3.47 L Hgb 9.0 L Hct 27.7 L MCV 79.9 L MCH 25.9 L MCHC 32.4 L RDW 16.2 H Plt Count 419 H MPV 7.3 L Absolute Neuts (auto) 4.40 Absolute Lymphs (auto) 0.60 L Absolute Monos (auto) 0.30 Absolute Eos (auto) 0.00 Absolute Basos (auto) 0.00 Neutrophils % 81.9 H Lymphocytes % 11.9 L Monocytes % 5.4 Eosinophils % 0.6 L Basophils % 0.2 PT 9.8 INR < 1.00 PTT (SP) 23.9 D-Dimer, Quantitative 2710.0 H* pCO2 28 L pO2 164 H* HCO3 28.5 ABG pH 7.616 H* ABG O2 Saturation 99.8 H ABG Base Excess 7.2 ABG Deoxyhemoglobin 0.2 Oxyhemoglobin % 99.3 H Carboxyhemoglobin % 0.5 Methemoglobin % Sat 0.0 Calc Total Hemoglobin 9.2 L Sodium Potassium Chloride Carbon Dioxide Anion Gap BUN Creatinine BUN/Creatinine Ratio Random Glucose Serum Osmolality Lactic Acid Calcium Total Bilirubin AST ALT Alkaline Phosphatase Troponin I B-Natriuretic Peptide Serum Total Protein Albumin Globulin Albumin/Globulin Ratio 07/10/20 07/10/20 07/10/20 14:20 14:20 14:35 WBC RBC Hgb Hct MCV MCH MCHC RDW Plt Count MPV Absolute Neuts (auto) Absolute Lymphs (auto) Absolute Monos (auto) Absolute Eos (auto) Absolute Basos (auto) Neutrophils % Lymphocytes % Monocytes % Eosinophils % Basophils % PT INR PTT (SP) D-Dimer, Quantitative pCO2 pO2 HCO3 ABG pH ABG O2 Saturation ABG Base Excess ABG Deoxyhemoglobin Oxyhemoglobin % Carboxyhemoglobin % Methemoglobin % Sat Calc Total Hemoglobin Sodium 131 L Potassium 5.4 H Chloride 92 L Carbon Dioxide 26 Anion Gap 18.4 H BUN 62 H Creatinine 1.02 BUN/Creatinine Ratio 60.8 H Random Glucose 268 H Serum Osmolality 289.7 Lactic Acid 2.7 H* Calcium 8.6 Total Bilirubin 0.4 AST 33 ALT 29 Alkaline Phosphatase 81 Troponin I 0.02 B-Natriuretic Peptide 416.0 H* Serum Total Protein 7.6 Albumin 2.5 L Globulin 5.1 H Albumin/Globulin Ratio 0.5 L 07/10/20 07/10/20 07/10/20 17:14 21:01 21:01 WBC RBC Hgb Hct MCV MCH MCHC RDW Plt Count MPV Absolute Neuts (auto) Absolute Lymphs (auto) Absolute Monos (auto) Absolute Eos (auto) Absolute Basos (auto) Neutrophils % Lymphocytes % Monocytes % Eosinophils % Basophils % PT INR PTT (SP) D-Dimer, Quantitative pCO2 pO2 HCO3 ABG pH ABG O2 Saturation ABG Base Excess ABG Deoxyhemoglobin Oxyhemoglobin % Carboxyhemoglobin % Methemoglobin % Sat Calc Total Hemoglobin Sodium 133 L Potassium 5.1 H Chloride 94 L Carbon Dioxide 28 Anion Gap 16.1 BUN 58 H Creatinine 0.97 BUN/Creatinine Ratio 59.8 H Random Glucose 151 H D Serum Osmolality 285.5 Lactic Acid 1.4 Calcium 8.6 Total Bilirubin AST ALT Alkaline Phosphatase Troponin I 0.02 B-Natriuretic Peptide Serum Total Protein Albumin Globulin Albumin/Globulin Ratio - EKG/XRAY/CT EKG: Sinus - Normal sinus rhythm, heart rate 60, no ST elevations or Q waves noted, axis normal, intervals normal, compared to 06/30/[address] segment changes appear resolved XRAY: chest - bilateral diffuse hazy opacities concerning for bilateral pneumonia versus pulmonary edema. Departure - Departure Clinical Impression: Pneumonia Qualifiers: Pneumonia type: due to unspecified organism Laterality: bilateral Lung location: unspecified part of lung Qualified Code(s): J18.9 - Pneumonia, unspecified organism Time of Disposition: 23:02 Disposition: Discharge to SNF Condition: Fair Instructions: Pneumonia, Adult (DC) Diet: resume usual diet Activity: increase activity as tolerated Referrals: DELMY BUTLER [Primary Care Provider] - 1-2 Days Home Medications: Ambulatory Orders ALPRAZolam [Xanax] 0.5 mg PEG Q8H 06/30/20 Acetaminophen [Acetaminophen Extra Stren] 1,000 mg PEG Q8H PRN 06/30/20 Acetaminophen [Tylenol] 325 mg PEG Q6H 06/30/20 Alirocumab [Praluent] 150 mg SC .[id number] 06/30/20 Aspirin [Aspirin Adult Low Dose] 81 mg PEG DAILY 12/29/20 Atorvastatin Calcium [Lipitor] 80 mg PEG DAILY 06/30/20 Budesonide (Inhalation) [Budesonide] 0.5 mg IN Q12H 06/30/20 Buspirone HCl 15 mg PEG TID 06/30/20 Carbamazepine 100 mg PEG BID 06/30/20 Carvedilol 12.5 mg PEG BID 06/30/20 Cholestyramine Powder [Questran Powder] 4 gm PEG TID 06/30/20 Clonidine HCl 0.1 mg PEG BID 06/30/20 Dicyclomine HCl [Bentyl] 20 mg PEG Q6H PRN 06/30/20 Diphenoxylate/Atropine [Lomotil Tab] 2.5 mg PEG Q6H PRN 06/30/20 Ergocalciferol [Vitamin D] 50,000 unit PEG WE 06/30/20 Famotidine 20 mg PEG DAILY 06/30/20 Furosemide 40 mg PEG BID 06/30/20 Gabapentin 600 mg PEG TID 06/30/20 Hydroxyzine HCl 50 mg PEG Q8H PRN 06/30/20 Ibuprofen 600 mg PEG Q12H PRN 06/30/20 Insulin Glargine [Basaglar Kwikpen] 35 unit SC BID 06/30/20 Insulin Lispro [HumaLOG] 100 unit SC Q6H 06/30/20 Ipratropium-Albuterol [Ipratropium Sparks/Albut] 1 janice IN Q6H PRN 06/30/20 Isosorbide Mononitrate (Ismo) [Ismo] 20 mg PEG Q8H 06/30/20 Levofloxacin [Levaquin] 750 mg PO DAILY #9 tab 06/30/20 Levothyroxine Sodium 88 mcg PEG DAILY 06/30/20 Levothyroxine Sodium [Synthroid] 200 mcg PEG DAILY 06/30/20 Magnesium [Magnesium Elemental] 30 mg PEG DAILY 06/30/20 Methocarbamol 750 mg PEG BID 06/30/20 Metoclopramide HCl [Metoclopramide Hydrochlor] 10 mg PEG Q6H PRN 06/30/20 Metolazone 5 mg PEG GAGAN-OTH-DAY 06/30/20 Nitroglycerin 0.4 mg Tab [Nitrostat] 1 ea SL PRN 06/30/20 Pantoprazole Tablet [Protonix] 40 mg PEG ACBK 06/30/20 Prasugrel [Effient] 10 mg PEG DAILY 06/30/20 Sertraline HCl [Zoloft] 100 mg PEG BID 06/30/20 Spironolactone 50 mg PEG DAILY 06/30/20 Trazodone HCl [Trazodone Hydrochloride] 200 mg PEG BEDTIME 06/30/20 Verapamil HCl 80 mg PEG Q8H 06/30/20 Additional Instructions: We are discharging back to the retirement for continued treatment of pneumonia. We are stopping the Levaquin antibiotics and beginning you on new antibiotics of vancomycin and cefepime. Return to the ED if you develop concerning symptoms such as worsening shortness of breath, chest pain, etc. Follow-up with your primary care doctor at the retirement is recommended in the next 1 to 2 days for repeat evaluation.
[2020-07-10] MEDS ORDERED: NITROGLYCERIN 0.4 MG 25 EA TAB SL ONE (13:58)
--- NOTE | 2020-07-10 15:06 | RAD ---
EXAM DESCRIPTION: Chest,1 View x-ray CLINICAL HISTORY: 49 years Female, chest pain, dyspnea COMPARISON: 07/04/2020 IMPRESSION: The heart remains stable in size. Median sternotomy wires with changes of prior cardiac surgery. Diffuse bilateral airspace opacities, most consistent with multifocal pneumonia versus pulmonary edema. Opacities are slightly increased since the prior exam. No large pleural effusion or pneumothorax. No acute osseous abnormality. Electronically signed by: Lavon Thomas MD 07/10/2020 3:04 PM [facility]
[2020-07-10] MEDS ORDERED: MORPHINE SULFATE INJ 10 MG/ML VIAL IV ONE ×3 (15:23→20:10)
[2020-07-10 17:02] VITALS: O2SAT 99
[2020-07-10] MEDS ORDERED: SODIUM CHLORIDE 0.9% 1000ML 1,000 ML IVS ONE (17:17)
[2020-07-10] MEDS ORDERED: CEFEPIME 2 GM in SODIUM CHL 0.9% 100ML MINI-BAG 100 ML IVPB ONE (17:23)
[2020-07-10] MEDS ORDERED: VANCOMYCIN HCL INJ 1,000 MG, VANCOMYCIN HCL INJ 500 MG in SODIUM CHLORIDE 0.9% 250ML 25... IVPB ONE (17:23)
--- NOTE | 2020-07-10 17:34 | CT ---
PROCEDURE: Chest w/Contrast CLINICAL HISTORY: 49 years Female chest pain, cough, BL pneumonia COMPARISON: 06/30/2020. TECHNIQUE: Contiguous axial images obtained through the chest during the infusion of IV contrast. Reformatted images obtained. This exam was performed according to our department optimization program which includes automated exposure control, adjustment of the mA and/or kv according to patient size and/or use of iterative reconstruction technique. FINDINGS: Changes from previous cholecystectomy. There is a gastrostomy tube with its tip in the stomach. There is a tracheostomy tube in place. The cardiac chambers are enlarged. Coronary artery calcifications/stents. Changes from previous sternotomy. The mediastinum appears unremarkable. No aneurysmal dilatation in the thoracic aorta. The main pulmonary artery is enlarged measuring 4.2 cm in maximum diameter suggesting pulmonary artery hypertension. There are patchy groundglass infiltrates more pronounced compared to the prior study. The findings are likely from an infectious/inflammatory process including covid pneumonia. There are dependent atelectatic changes. No definite pleural effusion. No pneumothorax. Old right fifth rib fracture. There is a similar subpleural nodule adjacent to the rib fracture measuring up to 1.2 cm. This is most likely related to previous trauma. There is a similar 0.7 cm nodular lesion in the right middle lobe on axial image . IMPRESSION: There are patchy groundglass infiltrates more pronounced compared to the prior study likely from an infectious/inflammatory process including covid pneumonia. Enlargement of the main pulmonary arteries suggesting pulmonary artery hypertension. Nodular lesions in the lungs as described. Six month follow-up could be obtained is recommended on the prior chest CT study. Other findings as above. Electronically signed by: Bear Jaramillo MD 07/10/2020 5:32 PM HEMODIALYSIS CHARGE NURSE
[2020-07-10] MEDS ORDERED: NEOMYCIN-BACITRACIN-POLYMYXIN 0.9 GM UD TOP ONE (19:09)
[2020-07-10 23:21] VITALS: BP 146/77; TEMP 97.9
== END 2020-07-10 23:26 ==
LOC: ER 13:42
DX: J18.9 Pneumonia, unspecified organism (principal); R07.9 Chest pain, unspecified; I50.9 Heart failure, unspecified; I11.0 Hypertensive heart disease with heart failure; J44.9 Chronic obstructive pulmonary disease, unspecified; F41.9 Anxiety disorder, unspecified; K21.9 Gastro-esophageal reflux disease without esophagitis; I25.2 Old myocardial infarction; E11.9 Type 2 diabetes mellitus without complications; E07.9 Disorder of thyroid, unspecified; Z20.822 Contact with and (suspected) exposure to COVID-19; Z87.891 Personal history of nicotine dependence; Z93.0 Tracheostomy status; Z93.1 Gastrostomy status; Z99.11 Dependence on respirator [ventilator] status; Z79.899 Other long term (current) drug therapy; Z79.4 Long term (current) use of insulin; Z79.82 Long term (current) use of aspirin; Z88.8 Allergy status to other drugs, medicaments and biological substances; Z88.5 Allergy status to narcotic agent; Z88.1 Allergy status to other antibiotic agents; Z88.0 Allergy status to penicillin
CPT/HCPCS: 36415; 71045; 71260; 80048; 80053; 83605; 83880; 84484; 85025; 85379; 85610; 85730; 87040; 87486; 87502; 87581; 87633; 87635; 94002; J0692; J2060; J2270; J3370; J7030; J7050; J7620

== ENCOUNTER 2020-07-24 23:36 | Emergency (ER) | payer OTHER ==
[2020-07-24] MEDS ORDERED: fentaNYL CITRATE INJ 50 MCG/ML 2 ML AMP IV ONE (23:48)
--- NOTE | 2020-07-24 23:51 | ED.PDOC ---
History of Present Illness - History of Present Illness Initial Comments: 49-year-old female extensive past medical history presents via EMS from nursing care facility to ED complaining of 1 hour of acute onset chest pain that radiates to her left arm. Patient has a history of multiple MIs with associated cardiac arrest states her current chest pain feels similar but not quite as severe. She does not have any worsening shortness of breath beyond baseline is she has a tracheostomy in place on the ventilator due to respiratory failure from COVID-19 which she has recovered from. Pt has already taken x4 tabs 81mg ASA prior to coming to the ED. Denies alleviating/aggravating factors. Positive history of similar symptoms. Denies headache, dizziness, peripheral edema. No other symptoms or complaints at this time. <Shakeel Johnson - Last Filed: 07/25/20 06:42> <Susie Brandt - Last Filed: 07/25/20 11:17> - General Time Seen by Provider: 07/24/20 23:39 - History of Present Illness Allergies/Adverse Reactions: Allergies Amoxicillin [From Augmentin] Allergy (Verified 07/10/20 14:25) Clavulanic Acid [From Augmentin] Allergy (Verified 07/10/20 14:25) Clindamycin Allergy (Verified 07/10/20 14:25) Desvenlafaxine [From Pristiq] Allergy (Verified 07/10/20 14:25) Ondansetron [From Zofran] Allergy (Verified 07/10/20 14:25) Penicillins Allergy (Verified 07/10/20 14:25) Tramadol Allergy (Verified 07/10/20 14:25) Home Medications: Ambulatory Orders ALPRAZolam [Xanax] 0.5 mg PEG Q8H 06/30/20 Acetaminophen [Acetaminophen Extra Stren] 1,000 mg PEG Q8H PRN 06/30/20 Acetaminophen [Tylenol] 325 mg PEG Q6H 06/30/20 Alirocumab [Praluent] 150 mg SC [id number] 06/30/20 Aspirin [Aspirin Adult Low Dose] 81 mg PEG DAILY 06/30/20 Atorvastatin Calcium [Lipitor] 80 mg PEG DAILY 06/30/20 Budesonide (Inhalation) [Budesonide] 0.5 mg IN Q12H 06/30/20 Buspirone HCl 15 mg PEG TID 06/30/20 Carbamazepine 100 mg PEG BID 06/30/20 Carvedilol 12.5 mg PEG BID 06/30/20 Cholestyramine Powder [Questran Powder] 4 gm PEG TID 06/30/20 Clonidine HCl [Clonidine Hydrochloride] 0.1 mg PEG BID 06/30/20 Dicyclomine HCl [Bentyl] 20 mg PEG Q6H PRN 06/30/20 Diphenoxylate/Atropine [Lomotil Tab] 2.5 mg PEG Q6H PRN 06/30/20 Ergocalciferol [Vitamin D] 50,000 unit PEG WE 06/30/20 Famotidine 20 mg PEG DAILY 06/30/20 Furosemide 40 mg PEG BID 06/30/20 Gabapentin 600 mg PEG TID 06/30/20 Hydroxyzine HCl 50 mg PEG Q8H PRN 06/30/20 Ibuprofen 600 mg PEG Q12H PRN 06/30/20 Insulin Glargine [Basaglar Kwikpen] 35 unit SC BID 06/30/20 Insulin Lispro [HumaLOG] 100 unit SC Q6H 06/30/20 Ipratropium-Albuterol [Ipratropium Lyons/Albut] 1 janice IN Q6H PRN 06/30/20 Isosorbide Mononitrate (Ismo) [Ismo] 20 mg PEG Q8H 06/30/20 Levofloxacin [Levaquin] 750 mg PO DAILY #9 tab 06/30/20 Levothyroxine Sodium 88 mcg PEG DAILY 06/30/20 Levothyroxine Sodium [Synthroid] 200 mcg PEG DAILY 06/30/20 Magnesium [Magnesium Elemental] 30 mg PEG DAILY 06/30/20 Methocarbamol 750 mg PEG BID 06/30/20 Metoclopramide HCl [Metoclopramide Hydrochlor] 10 mg PEG Q6H PRN 06/30/20 Metolazone 5 mg PEG GAGAN-OTH-DAY 06/30/20 Nitroglycerin 0.4 mg Tab [Nitrostat] 1 ea SL PRN 06/30/20 Pantoprazole Tablet [Protonix] 40 mg PEG ACBK 06/30/20 Prasugrel [Effient] 10 mg PEG DAILY 06/30/20 Sertraline HCl [Zoloft] 100 mg PEG BID 06/30/20 Spironolactone 50 mg PEG DAILY 06/30/20 Trazodone HCl [Trazodone Hydrochloride] 200 mg PEG BEDTIME 06/30/20 Verapamil HCl 80 mg PEG Q8H 06/30/20 Review of Systems - Review of Systems Constitutional: Denies: chills, fever EENTM: Denies: nose congestion, throat pain Respiratory: States: cough - no acute change in cough from being on vent with trach, short of breath - trach on vent, no acute SOB Cardiology: States: chest pain. Denies: edema, palpitations Gastrointestinal/Abdominal: Denies: abdominal pain, nausea, vomiting Genitourinary: Denies: dysuria, frequency Musculoskeletal: Denies: back pain, muscle pain Skin: Denies: change in color, rash Neurological: States: other - no dizziness. Denies: headache Hematologic/Lymphatic: Denies: easy bruising <Shakeel Johnson - Last Filed: 07/25/20 06:42> Past Medical History (General) - Patient Medical History Hx Seizures: No Hx Stroke: No Hx Dementia: No Hx of COPD: Yes Hx Cardiac Disorders: Yes - DE Hx Congestive Heart Failure: Yes Hx Pacemaker: No Hx Hypertension: Yes Hx Thyroid Disease: Yes Hx Diabetes: Yes Hx Gastroesophageal Reflux: Yes Hx Renal Disease: No Hx Cancer: No Hx of HIV: No Hx Hepatitis C: No Hx MRSA: No - Vaccination History Hx Tetanus, Diphtheria Vaccination: - unkn Hx Influenza Vaccination: Yes Hx Pneumococcal Vaccination: - UNKNOWN - Social History Hx Tobacco Use: Yes Hx Physical Abuse: No Hx Emotional Abuse: No Hx Suspected Abuse: No - Female History Patient : No <Shakeel Johnson - Last Filed: 07/25/20 06:42> Family Medical History - Family History Mother Family History: Unknown Living Status: Still Living <Shakeel Johnson - Last Filed: 07/25/20 06:42> Physical Exam - Physical Exam General Appearance: Alert, Obvious distress, Obese Eyes, Ears, Nose, Throat Exam: normal ENT inspection Neck: supple, normal inspection, other - trach in place on vent Respiratory: respiratory distress - not acute, trach in place on vent, no acute distress and comfortable on current vent settings, crackles, rales - greatest in LLL Cardiovascular/Chest: normal peripheral pulses, regular rate, rhythm, no edema, no JVD, no murmur Gastrointestinal/Abdominal: normal bowel sounds, non tender, soft Extremity: no pedal edema Neurologic: alert, normal mood/affect, oriented x 3 Skin Exam: normal color, warm/dry, other - no rash <Shakeel Johnson - Last Filed: 07/25/20 06:42> Progress - Progress Progress: Shakeel Johnson DO Emergency Medicine Physician [facility] #[id number] Appropriate PPE of surgical mask, gown, gloves, and eye protection (if encounter >5 minutes) utilized with every patient encounter; in accordance with hospital policy. Presents for ACS. I will perform labs, EKG, imaging, provide appropriate pharmacotherapy, and continue to monitor/reassess. Dispo will depend on labs, EKG, imaging results and overall course in ED; however, admission is expected. 01:01 Recheck patient. Vital signs stable. Patient states she is still having chest pain feels like it might be getting worse. Patient remains with no acute EKG changes on the monitor.I will order further pain medication for patient at this time. Delta troponin will be performed. 02:49 Rechecked pt. NAD, VSS, resting comfortably in bed. She states her CP is improved after the dilaudid. I have discussed radiology results, lab results, my clinical impression, and diagnosis. I have also discussed the need for admission and transfer since our hospitalist do not manage pt's on a ventilator. Pt voices understanding, agrees with plan, and all questions answered. - Results/Orders Results/Orders: EKG @2248: read @2251. NSR @ 63, nl axis, intervals wnl, no ST elevations/depressions, nonspecific ST/T-wave changes. No STEMI. Compared with 07/10/2020 EKG: improved HR; otherwise, no changes concerning for acute ischemia. 07/24/20 23:47 IV Care:Saline Lock per Protoc QSHIFT IV:Start .ONCE 07/24/20 23:48 UA [URINALYSIS] Stat 07/25/20 00:16 Mechanical Ventilation DAILY 07/25/20 23:48 EKG STAT Laboratory Results - last 24 hr 07/24/20 07/25/20 00:05 02:00 WBC 6.0 RBC 3.33 L Hgb 8.9 L Hct 26.9 L MCV 80.8 L MCH 26.7 L MCHC 33.1 RDW 17.3 H Plt Count 176 MPV 7.1 L Absolute Neuts (auto) 4.10 Absolute Lymphs (auto) 1.20 Absolute Monos (auto) 0.60 Absolute Eos (auto) 0.00 Absolute Basos (auto) 0.10 Neutrophils % 68.5 Lymphocytes % 19.4 L Monocytes % 10.2 H Eosinophils % 0.8 L Basophils % 1.1 PT 10.1 INR 1.02 PTT (SP) 23.0 Sodium 131 L Potassium 3.7 Chloride 94 L Carbon Dioxide 27 Anion Gap 13.7 BUN 27 H Creatinine 0.92 BUN/Creatinine Ratio 29.3 H Random Glucose 262 H Serum Osmolality 276.9 Calcium 8.8 Magnesium 1.7 L Creatine Kinase 68 CK-MB (CK-2) 6.4 H* CK-MB (CK-2) % Not Reportable Troponin I 0.03 0.03 B-Natriuretic Peptide 208.0 H* EXAM DESCRIPTION: Chest,1 View CLINICAL HISTORY: 49 years Female, CP COMPARISON: 07/10/2020 TECHNIQUE: Single AP chest radiograph. FINDINGS: Tracheostomy in unchanged position. Intact sternotomy wires. Stable cardiomega ly. Persistent congestion changes with diffuse opacities, decreased compared to the previous exam. No pneumothorax or pleural effusion. IMPRESSION: 1. Persistent diffuse pulmonary opacities, but decreased compared to 07/10/20. Electronically signed by: Ismael Malin MD 07/25/2020 12:43 AM DIRECTOR OF BUSINESS OPERATIONS Vital Signs - 24 hr 07/24/20 07/25/20 07/25/20 23:48 00:04 01:14 Temperature 98.3 F 97.5 F L Pulse Rate 64 64 Pulse Rate [ 64 59 L Left Radial] Respiratory 12 12 Rate Respiratory 12 Rate [Volume Control Data] Blood Pressure 148/85 140/71 [Left Arm] O2 Sat by Pulse 100 100 Oximetry 07/25/20 07/25/20 07/25/20 02:20 03:30 03:47 Temperature Pulse Rate 59 L 52 L Pulse Rate [ 59 L 51 L Left Radial] Respiratory 12 12 Rate Respiratory 12 Rate [Volume Control Data] Blood Pressure 102/54 128/73 [Left Arm] O2 Sat by Pulse 99 99 Oximetry 07/25/20 05:58 Temperature Pulse Rate Pulse Rate [ Left Radial] Respiratory Rate Respiratory 12 Rate [Volume Control Data] Blood Pressure [Left Arm] O2 Sat by Pulse Oximetry <Elizabeth,Shakeel - Last Filed: 07/25/20 06:42> - Progress Progress: 07/25/20 11:12 patient given aspirin, I given her nitro x 3. continues to complain of chest pain. CARDIAC score 4. Has requested narcotics multiple times. Given IV tylenol. Has received dilaudid which she states helps. EKG shows no acute ischemia. CXR shows resolving pneumonia. Troponin negative x 3. Due to her ongoing chest pain I feel she should be evaluated by a group teacher with her significant cardiac history. Patients group teacher Dr. Vega in . Currently all of has no beds available. The data reviewed when caring for this patient included: nurse notes, prior records, EMS, longterm etc. The history and assessments from nurses notes were reviewed and considered, and the patient's home medication list was also reviewed and considered. My assessment and the results of testing completed here in the ED were discussed with the pat ient. All questions were answered, and they express understanding of my assessment and the plan. patient was transferred in stable condition. Susie Brandt DO #[id number] 07/25/20 11:14 <Susie Brandt - Last Filed: 07/25/20 11:17> Departure - Departure Time of Disposition: 02:55 <Shakeel Johnson - Last Filed: 07/25/20 06:42> <Susie Brandt - Last Filed: 07/25/20 11:17> - Departure Clinical Impression: ACS (acute coronary syndrome), History of multiple myocardial infarctions, Anticoagulated, Hyperglycemia Disposition: Transfer to Hospital Condition: Fair Referrals: DELMY BUTLER [Primary Care Provider] - 1-2 Weeks Home Medications: Ambulatory Orders ALPRAZolam [Xanax] 0.5 mg PEG Q8H 06/30/20 Acetaminophen [Acetaminophen Extra Stren] 1,000 mg PEG Q8H PRN 06/30/20 Acetaminophen [Tylenol] 325 mg PEG Q6H 06/30/20 Alirocumab [Praluent] 150 mg SC .[id number] 06/30/20 Aspirin [Aspirin Adult Low Dose] 81 mg PEG DAILY 06/30/20 Atorvastatin Calcium [Lipitor] 80 mg PEG DAILY 06/30/20 Budesonide (Inhalation) [Budesonide] 0.5 mg IN Q12H 06/30/20 Buspirone HCl 15 mg PEG TID 06/30/20 Carbamazepine 100 mg PEG BID 06/30/20 Carvedilol 12.5 mg PEG BID 06/30/20 Cholestyramine Powder [Questran Powder] 4 gm PEG TID 06/30/20 Clonidine HCl [Clonidine Hydrochloride] 0.1 mg PEG BID 06/30/20 Dicyclomine HCl [Bentyl] 20 mg PEG Q6H PRN 06/30/20 Diphenoxylate/Atropine [Lomotil Tab] 2.5 mg PEG Q6H PRN 06/30/20 Ergocalciferol [Vitamin D] 50,000 unit PEG WE 06/30/20 Famotidine 20 mg PEG DAILY 06/30/20 Furosemide 40 mg PEG BID 06/30/20 Gabapentin 600 mg PEG TID 06/30/20 Hydroxyzine HCl 50 mg PEG Q8H PRN 06/30/20 Ibuprofen 600 mg PEG Q12H PRN 06/30/20 Insulin Glargine [Basaglar Kwikpen] 35 unit SC BID 06/30/20 Insulin Lispro [HumaLOG] 100 unit SC Q6H 06/30/20 Ipratropium-Albuterol [Ipratropium Lyons/Albut] 1 janice IN Q6H PRN 06/30/20 Isosorbide Mononitrate (Ismo) [Ismo] 20 mg PEG Q8H 06/30/20 Levofloxacin [Levaquin] 750 mg PO DAILY #9 tab 06/30/20 Levothyroxine Sodium 88 mcg PEG DAILY 06/30/20 Levothyroxine Sodium [Synthroid] 200 mcg PEG DAILY 06/30/20 Magnesium [Magnesium Elemental] 30 mg PEG DAILY 06/30/20 Methocarbamol 750 mg PEG BID 06/30/20 Metoclopramide HCl [Metoclopramide Hydrochlor] 10 mg PEG Q6H PRN 06/30/20 Metolazone 5 mg PEG GAGAN-OTH-DAY 06/30/20 Nitroglycerin 0.4 mg Tab [Nitrostat] 1 ea SL PRN 06/30/20 Pantoprazole Tablet [Protonix] 40 mg PEG ACBK 06/30/20 Prasugrel [Effient] 10 mg PEG DAILY 06/30/20 Sertraline HCl [Zoloft] 100 mg PEG BID 06/30/20 Spironolactone 50 mg PEG DAILY 06/30/20 Trazodone HCl [Trazodone Hydrochloride] 200 mg PEG BEDTIME 06/30/20 Verapamil HCl 80 mg PEG Q8H 06/30/20 Transfer to Outside Facility - Transfer Information Decision to Transfer Date: 07/25/20 Decision to Transfer Time: 02:49 Reason for Transfer: specialized care not available <Shakeel Johnson - Last Filed: 07/25/20 06:42> - Transfer Information Accepting Facility: [facility] <Susie Bradnt - Last Filed: 07/25/20 11:17>
--- NOTE | 2020-07-25 00:45 | RAD ---
EXAM DESCRIPTION: Chest,1 View CLINICAL HISTORY: 49 years Female, CP COMPARISON: 07/10/2020 TECHNIQUE: Single AP chest radiograph. FINDINGS: Tracheostomy in unchanged position. Intact sternotomy wires. Stable cardiomegaly. Persistent congestion changes with diffuse opacities, decreased compared to the previous exam. No pneumothorax or pleural effusion. IMPRESSION: 1. Persistent diffuse pulmonary opacities, but decreased compared to 07/10/20. Electronically signed by: Ismael Malin MD 07/25/2020 12:43 AM [facility]
[2020-07-25] MEDS ORDERED: HYDROmorphone HCL INJ 2 MG/ML VIAL IV ONE ×4 (01:01→08:01)
[2020-07-25] MEDS ORDERED: NITROGLYCERIN 0.4 MG 25 EA TAB SL ONE ×3 (07:50→10:54)
[2020-07-25] MEDS ORDERED: SODIUM CHLORIDE 0.9% 1000ML 1,000 ML IVS ONE (10:58)
[2020-07-25] MEDS ORDERED: ACETAMINOPHEN IV 1000MG 1,000 MG in PREMIX BOTTLE 1 BOTTLE IVPB ONE (10:58)
[2020-07-25] MEDS ORDERED: LORazepam 0.5 MG TAB PO ONE (11:14)
[2020-07-25 14:45] VITALS: TEMP 98
[2020-07-25 14:47] VITALS: BP 104/61; O2SAT 100
== END 2020-07-25 12:30 | disposition short-term general hospital (02) ==
LOC: ER 23:36
DX: I24.9 Acute ischemic heart disease, unspecified (principal); I25.2 Old myocardial infarction; E11.65 Type 2 diabetes mellitus with hyperglycemia; J44.9 Chronic obstructive pulmonary disease, unspecified; I50.9 Heart failure, unspecified; I11.0 Hypertensive heart disease with heart failure; E07.9 Disorder of thyroid, unspecified; K21.9 Gastro-esophageal reflux disease without esophagitis; Z93.0 Tracheostomy status; Z99.11 Dependence on respirator [ventilator] status; Z86.74 Personal history of sudden cardiac arrest; Z86.16 Personal history of COVID-19; Z79.01 Long term (current) use of anticoagulants; Z87.891 Personal history of nicotine dependence; Z79.899 Other long term (current) drug therapy; Z79.4 Long term (current) use of insulin; Z88.1 Allergy status to other antibiotic agents; Z88.8 Allergy status to other drugs, medicaments and biological substances; Z88.0 Allergy status to penicillin
CPT/HCPCS: 36415; 36416; 71045; 80048; 82550; 82553; 82948; 83880; 84484; 85025; 85610; 85730; 87635; 93005; 94002; 94003; J3010